=== PATIENT | female | born 1990 | race Asian ===

== ENCOUNTER 2017-02-20 01:38 | Inpatient (IN) | payer BC ==
[2017-02-20] MEDS ORDERED: Ondansetron 4 MG/2 ML SDV IVPUSH PRN ×2 (03:35→08:29)
[2017-02-20] MEDS ORDERED: Sodium Chloride 0.9% 10 ML Syringe FLUSH PRN (03:35)
[2017-02-20] MEDS ORDERED: Nalbuphine 20 MG/1 ML Amp IVPUSH PRN (03:35)
[2017-02-20] MEDS ORDERED: Oxytocin/Lactated Ringers 10 UNIT/1,000 ML BAG IV SCH (03:45)
[2017-02-20] MEDS: Lactated Ringers 1,000 ML IV SCH ×4 (04:00→09:20)
--- NOTE | 2017-02-20 06:54 | PCM.LDHP ---
L&D History of Present Illness - General Date of Service: 02/20/17 Admit Problem/Dx: Patient Status Order with Admit Dx/Problem 02/20/17 02:00 Patient Status [ADT] Routine Admission Diagnosis/Problem Admission Diagnosis/Problem Source of Information: Patient History Limitations: Reports: No Limitations - History of Present Illness Introduction:: Patient is a 26 y/o at 40 0/7 who presented early this AM for PROM. Thinks ROM was around 0130. Has had increasing painful contractions since that time. Otherwise doing well. 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: 0 LMP (Approximate): Psychiatric History: Reports: Anxiety, Depression Social & Family History - Family History Family Medical History: Noncontributory - Tobacco Use Smoking Status *Q: Never Smoker Second Hand Smoke Exposure: No - Caffeine Use Caffeine Use: Reports: Coffee - Alcohol Use Alcohol Use History: No - Recreational Drug Use Recreational Drug Use: No H&P Review of Systems - Review of Systems: Review Of Systems: See Below General: Reports: No Symptoms Pulmonary: Reports: No Symptoms Cardiovascular: Reports: No Symptoms Gastrointestinal: Reports: Abdominal Pain (contractions) Genitourinary: Reports: No Symptoms Musculoskeletal: Reports: No Symptoms Psychiatric: Reports: No Symptoms Neurological: Reports: No Symptoms L&D Exam - Exam Exam: See Below - Vital Signs Vital Signs: Last Vital Signs Temp 36.4 C 02/20/17 03:35 Pulse 72 02/20/17 03:35 Resp 18 02/20/17 03:35 BP 114/72 02/20/17 03:35 Pulse Ox Weight: 90.265 kg - OB Specific Contraction Intensity: Mild to Moderate Movement: Active Heart Tones: Present Heart Tones per Min: 135 Heart Rate (FHR) Variability: Moderate (6-25 bmp) Presentation: Vertex - Wade Score Wade Score Cervix Position: Midposition Wade Score Consistency: Medium Wade Score Effacement: >80% Wade Score Dilation: 1-2 cm Wade Score 's Station: -1 ,0 Wade Score Total: 8 - Exam General: Alert, Oriented, Cooperative Lungs: Clear to Auscultation, Normal Respiratory Effort Cardiovascular: Regular Rate, Regular Rhythm GI/Abdominal Exam: Soft, Non-Tender Genitourinary: Normal external exam Extremities: Normal Inspection Skin: Warm, Dry, Intact - Patient Data Lab Results Last 24 hrs: Laboratory Results - last 24 hr 02/20/17 02/20/17 Range/Units 04:07 04:07 WBC 10.92 H (3.98-10.04) K/mm3 RBC 4.37 (3.98-5.22) M/mm3 Hgb 12.2 (11.2-15.7) gm/L Hct 36.5 (34.1-44.9) % MCV 83.5 (79.4-94.8) fl MCH 27.9 (25.6-32.2) pg MCHC 33.4 (32.2-35.5) g/dl RDW Std Deviation 43.0 (36.4-46.3) fL Plt Count 144 L (182-369) K/mm3 MPV 11.8 (9.4-12.3) fl Blood Type O POSITIVE Gel Antibody Screen Negative Result Diagrams: 02/20/17 04:07 - Problem List (1) 40 weeks gestation of SNOMED Code(s): 88635699 ICD Code: Z3A.40 - 40 WEEKS GESTATION OF Status: Acute Current Visit: Yes (2) Premature rupture of membranes SNOMED Code(s): 65240122 ICD Code: O42.90 - BOYD ROM, 7TH0 BETW RUPT & ONST LABR, UNSP WEEKS OF GEST Status: Acute Current Visit: Yes Qualifiers: PROM onset of labor timing: unspecified duration between rupture of membranes and onset of labor PROM gestational age: full term Qualified Code( s): O42.92 - Full-term premature rupture of membranes, unspecified as to length of time between rupture and onset of labor Problem List Initiated/Reviewed/Updated: Yes Orders Last 24hrs: Active Orders 24 hr Category Date Time Status Patient Status [ADT] Routine ADT 02/20/17 02:00 Active Activity as Tolerated [RC] PFP Care 02/20/17 03:35 Active Communication Order [RC] ASDIRECTED Care 02/20/17 03:35 Active Notify Provider [RC] PFP Care 02/20/17 03:35 Active Notify Provider [RC] PRN Care 02/20/17 03:35 Active Peripheral IV Care [RC] . DIRECTED Care 02/20/17 03:35 Active Vital Signs [RC] PER UNIT ROUTINE Care 02/20/17 03:35 Active Clear Liquid Diet [DIET] Diet 02/20/17 Breakfast Active PATIENT RETYPE [BBK] Routine Lab 02/20/17 04:07 Results TYPE AND SCREEN [BBK] Routine Lab 02/20/17 04:07 Results Lactated Ringers [Ringers, Lactated] 1,000 ml Med 02/20/17 03:45 Active IV ASDIRECTED Nalbuphine [Nubain] Med 02/20/17 03:35 Active 10 mg IVPUSH Q2H PRN Ondansetron [Zofran] Med 02/20/17 03:35 Active 4 mg IVPUSH Q4H PRN Oxytocin/Lactated Ringers [Pitocin in LR 10 Units/1,000 Med 02/20/17 03:45 Active ML] 10 unit in 1,000 ml IV .CONTINUOUS Oxytocin/Lactated Ringers [Pitocin in LR 10 Units/1,000 Med 02/20/17 03:45 Active ML] 10 unit in 1,000 ml IV TITRATE Sodium Chloride 0.9% [Saline Flush] Med 02/20/17 03:35 Active 10 ml FLUSH ASDIRECTED PRN Electronic Heart Tones Ext w TOCO [WOMSER] Oth 02/20/17 03:35 Ordered Routine Electronic Heart Tones Internal [WOMSER] Per Unit Oth 02/20/17 03:35 Ordered Routine Peripheral IV Insertion Adult [OM.PC] Routine Oth 02/20/17 03:35 Ordered Resuscitation Status Routine Resus Stat 02/20/17 03:35 Ordered Medication Orders Lactated Ringer's (Ringers, Lactated) 1,000 mls @ 100 mls/hr IV ASDIRECTED ANTOINE Last Admin: 02/20/17 05:58 Dose: 100 mls/hr Infusion: 02/20/17 05:58 Dose: 100 mls/hr Admin: 02/20/17 04:00 Dose: 100 mls/hr Oxytocin/Lactated Ringer's (Pitocin In Lr 10 Units/1,000 Ml) 10 unit in 1,000 mls @ 12 mls/hr IV TITRATE ANTOINE; 2 MUNITS/MIN PRN Reason: Protocol Oxytocin/Lactated Ringer's (Pitocin In Lr 10 Units/1,000 Ml) 10 unit in 1,000 mls @ 500 mls/hr IV .CONTINUOUS ANTOINE Nalbuphine HCl (Nubain) 10 mg IVPUSH Q2H PRN PRN Reason: Pain (moderate 4-6) Ondansetron HCl (Zofran) 4 mg IVPUSH Q4H PRN PRN Reason: Nausea/Vomiting Sodium Chloride (Saline Flush) 10 ml FLUSH ASDIRECTED PRN PRN Reason: Keep Vein Open Assessment/Plan Comment:: 26 y/o at 40 0/7 wks with PROM * On initial exam cervix was 2 cm, now about 3 cm. Will start pitocin for augmentation. * GBS negative, no need for antibiotics * Pain management per patient preference * Anticipate
[2017-02-20] MEDS: Oxytocin/Lactated Ringers 10 UNIT/1,000 ML BAG IV SCH ×2 (07:45→23:36)
[2017-02-20] MEDS ORDERED: fentaNYL 100 MCG/2 ML SDV EPIDUR PRN (08:29)
[2017-02-20] MEDS ORDERED: diphenhydrAMINE 50 MG/ML SDV IVPUSH PRN (08:29)
[2017-02-20] MEDS ORDERED: ePHEDrine 50 MG/ML SDV IVPUSH PRN (08:29)
--- NOTE | 2017-02-20 08:32 | PCM.PREANE ---
Preanesthetic Assessment - Procedure Proposed Procedure: Labor Epidural - Anesthesia/Transfusion/Family Hx Anesthesia History: No Prior Anesthesia Family History of Anesthesia Reaction: No Transfusion History: No Prior Transfusion(s) - Review of Systems General: No Symptoms Pulmonary: No Symptoms Cardiovascular: No Symptoms Gastrointestinal: Other (GERD) Neurological: No Symptoms Other: Reports: Depression, Anxiety - Physical Assessment NPO Status Date: 02/20/17 NPO Status Time: 07:00 Respiratory Rate: 18 Vital Signs: Last Vital Signs Temp 36.4 C 02/20/17 03:35 Pulse 72 02/20/17 03:35 Resp 18 02/20/17 03:35 BP 114/72 02/20/17 03:35 Pulse Ox Height: 1.63 m Weight: 90.265 kg ASA Class: 2 Mental Status: Alert & Oriented x3 Airway Class: Mallampati = 1 Dentition: Reports: Normal Dentition Thyro-Mental Finger Breadths: 3 Mouth Opening Finger Breadths: 3 ROM/Head Extension: Full Lungs: Clear to Auscultation, Normal Respiratory Effort Cardiovascular: Regular Rate, Regular Rhythm - Lab Values: Laboratory Last Values WBC 10.92 K/mm3 (3.98-10.04) H 02/20/17 04:07 RBC 4.37 M/mm3 (3.98-5.22) 02/20/17 04:07 Hgb 12.2 gm/L (11.2-15.7) 02/20/17 04:07 Hct 36.5 % (34.1-44.9) 02/20/17 04:07 MCV 83.5 fl (79.4-94.8) 02/20/17 04:07 MCH 27.9 pg (25.6-32.2) 02/20/17 04:07 MCHC 33.4 g/dl (32.2-35.5) 02/20/17 04:07 RDW Std Deviation 43.0 fL (36.4-46.3) 02/20/17 04:07 Plt Count 144 K/mm3 (182-369) L 02/20/17 04:07 MPV 11.8 fl (9.4-12.3) 02/20/17 04:07 Blood Type O POSITIVE 02/20/17 04:07 Gel Antibody Screen Negative 02/20/17 04:07 - Allergies Allergies/Adverse Reactions: Allergies Allergy/AdvReac Type Severity Reaction Status Date / Time No Known Allergies Allergy Verified 02/20/17 03:35 - Blood Blood Available: No Product(s) Available: None - Anesthesia Plan Pre-Op Medication Ordered: None - Acknowledgements Anesthesia Type Planned: Epidural Pt an Appropriate Candidate for the Planned Anesthesia: Yes Alternatives and Risks of Anesthesia Discussed w Pt/Guardian: Yes Pt/Guardian Understands and Agrees with Anesthesia Plan: Yes PreAnesthesia Questionnaire - Past Health History Medical/Surgical History: Denies 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: Psychiatric History: Reports: Anxiety, Depression - SUBSTANCE USE Smoking Status *Q: Never Smoker Second Hand Smoke Exposure: No Recreational Drug Use History: No - CURRENT (IN HOUSE) MEDS Current Meds: Current Medications Lactated Ringer's (Ringers, Lactated) 1,000 mls @ 100 mls/hr IV ASDIRECTED ANTOINE Last Admin: 02/20/17 08:22 Dose: 999 mls/hr Oxytocin/Lactated Ringer's (Pitocin In Lr 10 Units/1,000 Ml) 10 unit in 1,000 mls @ 12 mls/hr IV TITRATE ANTOINE; 2 MUNITS/MIN PRN Reason: Protocol Last Titration: 02/20/17 08:15 Dose: 4 munits/min, 24 mls/hr Oxytocin/Lactated Ringer's (Pitocin In Lr 10 Units/1,000 Ml) 10 unit in 1,000 mls @ 500 mls/hr IV .CONTINUOUS ANTOINE Nalbuphine HCl (Nubain) 10 mg IVPUSH Q2H PRN PRN Reason: Pain (moderate 4-6) Ondansetron HCl (Zofran) 4 mg IVPUSH Q4H PRN PRN Reason: Nausea/Vomiting Sodium Chloride (Saline Flush) 10 ml FLUSH ASDIRECTED PRN PRN Reason: Keep Vein Open
[2017-02-20] MEDS: Bupivacaine/fentaNYL/NS 100 ML Bag EPIDUR SCH ×3 (09:04→23:14)
--- NOTE | 2017-02-20 12:11 | PCM.PNLD ---
Labor Progress Note - VS & Meds Vital Signs: Last Vital Signs Temp 36.4 C 02/20/17 03:35 Pulse 72 02/20/17 03:35 Resp 18 02/20/17 08:32 BP 114/72 02/20/17 03:35 Pulse Ox Active Medications: Current Medications Diphenhydramine HCl (Benadryl) 25 mg IVPUSH Q6H PRN PRN Reason: Pruritis Ephedrine Sulfate (Ephedrine Sulfate) 5 mg IVPUSH ASDIRECTED PRN PRN Reason: Hypotension Fentanyl (Sublimaze) 100 mcg EPIDUR Q3H PRN PRN Reason: Pain Last Admin: 02/20/17 09:03 Dose: 100 mcg Fentanyl/Bupivacaine HCl (Fentanyl/Bupivacaine/Ns 2 Mcg-0.125% 100 Ml) 100 ml EPIDUR ASDIRECTED ANTOINE Last Admin: 02/20/17 09:04 Dose: 100 ml Lactated Ringer's (Ringers, Lactated) 1,000 mls @ 100 mls/hr IV ASDIRECTED ANTOINE Last Admin: 02/20/17 09:20 Dose: 100 mls/hr Oxytocin/Lactated Ringer's (Pitocin In Lr 10 Units/1,000 Ml) 10 unit in 1,000 mls @ 12 mls/hr IV TITRATE ANTOINE; 2 MUNITS/MIN PRN Reason: Protocol Last Titration: 02/20/17 11:20 Dose: 10 munits/min, 60 mls/hr Oxytocin/Lactated Ringer's (Pitocin In Lr 10 Units/1,000 Ml) 10 unit in 1,000 mls @ 500 mls/hr IV .CONTINUOUS ANTOINE Nalbuphine HCl (Nubain) 10 mg IVPUSH Q2H PRN PRN Reason: Pain (moderate 4-6) Ondansetron HCl (Zofran) 4 mg IVPUSH Q4H PRN PRN Reason: Nausea/Vomiting Ondansetron HCl (Zofran) 4 mg IVPUSH ONETIME PRN PRN Reason: Nausea/Vomiting Sodium Chloride (Saline Flush) 10 ml FLUSH ASDIRECTED PRN PRN Reason: Keep Vein Open - Uterine Contractions Uterine Monitoring Mode: External [place] Contraction Intensity: Moderate Uterine Resting Tone: Soft - Monitoring Monitor Mode: External Ultrasound Heart Rate (FHR) Baseline: 135 Heart Rate (FHR) Variability: Moderate (6-25 bmp) Accelerations: Present, 10x10 (=/<32 wks) Decelerations: Early (isolated) Strip Review: Category I - Vaginal Exam Dilation (cm): 4 Effacement (Percent): 80 Station: -1 Cervical Position: Midposition - Labor Progress (Free Text) Labor Progress: Patient doing well. Comfortable with epidural. SVE with slow, but consistent change. Now 4 cm. Pitocin just increased to 12. Continue per protocol.
--- NOTE | 2017-02-20 17:21 | PCM.PNLD ---
Labor Progress Note - VS & Meds Vital Signs: Last Vital Signs Temp 36.4 C 02/20/17 03:35 Pulse 72 02/20/17 03:35 Resp 18 02/20/17 08:32 BP 114/72 02/20/17 03:35 Pulse Ox Active Medications: Current Medications Diphenhydramine HCl (Benadryl) 25 mg IVPUSH Q6H PRN PRN Reason: Pruritis Ephedrine Sulfate (Ephedrine Sulfate) 5 mg IVPUSH ASDIRECTED PRN PRN Reason: Hypotension Fentanyl (Sublimaze) 100 mcg EPIDUR Q3H PRN PRN Reason: Pain Last Admin: 02/20/17 09:03 Dose: 100 mcg Fentanyl/Bupivacaine HCl (Fentanyl/Bupivacaine/Ns 2 Mcg-0.125% 100 Ml) 100 ml EPIDUR ASDIRECTED ANTOINE Last Admin: 02/20/17 16:04 Dose: 100 ml Lactated Ringer's (Ringers, Lactated) 1,000 mls @ 100 mls/hr IV ASDIRECTED ANTOINE Last Admin: 02/20/17 09:20 Dose: 100 mls/hr Oxytocin/Lactated Ringer's (Pitocin In Lr 10 Units/1,000 Ml) 10 unit in 1,000 mls @ 12 mls/hr IV TITRATE ANTOINE; 2 MUNITS/MIN PRN Reason: Protocol Last Titration: 02/20/17 15:00 Dose: 12 munits/min, 72 mls/hr Oxytocin/Lactated Ringer's (Pitocin In Lr 10 Units/1,000 Ml) 10 unit in 1,000 mls @ 500 mls/hr IV .CONTINUOUS ANTOINE Nalbuphine HCl (Nubain) 10 mg IVPUSH Q2H PRN PRN Reason: Pain (moderate 4-6) Ondansetron HCl (Zofran) 4 mg IVPUSH Q4H PRN PRN Reason: Nausea/Vomiting Ondansetron HCl (Zofran) 4 mg IVPUSH ONETIME PRN PRN Reason: Nausea/Vomiting Sodium Chloride (Saline Flush) 10 ml FLUSH ASDIRECTED PRN PRN Reason: Keep Vein Open - Uterine Contractions Uterine Monitoring Mode: External [place] Contraction Intensity: Moderate to Strong Uterine Resting Tone: Soft - Monitoring Monitor Mode: External Ultrasound Heart Rate (FHR) Baseline: 140 Heart Rate (FHR) Variability: Moderate (6-25 bmp) Accelerations: Present, 10x10 (=/<32 wks) Decelerations: Early (rare), Variable (rare) Strip Review: Category I - Vaginal Exam Dilation (cm): 7-8 Effacement (Percent): 80 Station: 0 Cervical Position: Anterior - Labor Progress (Free Text) Labor Progress: Doing well. Pitocin still at 12. Continue present management
[2017-02-20] MEDS ORDERED: Famotidine 20 MG/2 ML SDV IVPUSH PRN (18:48)
--- NOTE | 2017-02-20 20:07 | PCM.PNLD ---
Labor Progress Note - VS & Meds Vital Signs: Last Vital Signs Temp 36.4 C 02/20/17 03:35 Pulse 72 02/20/17 03:35 Resp 18 02/20/17 08:32 BP 114/72 02/20/17 03:35 Pulse Ox Active Medications: Current Medications Diphenhydramine HCl (Benadryl) 25 mg IVPUSH Q6H PRN PRN Reason: Pruritis Ephedrine Sulfate (Ephedrine Sulfate) 5 mg IVPUSH ASDIRECTED PRN PRN Reason: Hypotension Famotidine (Pepcid) 20 mg IVPUSH ONETIME PRN PRN Reason: stomach ache Fentanyl (Sublimaze) 100 mcg EPIDUR Q3H PRN PRN Reason: Pain Last Admin: 02/20/17 09:03 Dose: 100 mcg Fentanyl/Bupivacaine HCl (Fentanyl/Bupivacaine/Ns 2 Mcg-0.125% 100 Ml) 100 ml EPIDUR ASDIRECTED ANTOINE Last Admin: 02/20/17 16:04 Dose: 100 ml Lactated Ringer's (Ringers, Lactated) 1,000 mls @ 100 mls/hr IV ASDIRECTED ANTOINE Last Admin: 02/20/17 09:20 Dose: 100 mls/hr Oxytocin/Lactated Ringer's (Pitocin In Lr 10 Units/1,000 Ml) 10 unit in 1,000 mls @ 12 mls/hr IV TITRATE ANTOINE; 2 MUNITS/MIN PRN Reason: Protocol Last Titration: 02/20/17 15:00 Dose: 12 munits/min, 72 mls/hr Oxytocin/Lactated Ringer's (Pitocin In Lr 10 Units/1,000 Ml) 10 unit in 1,000 mls @ 500 mls/hr IV .CONTINUOUS ANTOINE Nalbuphine HCl (Nubain) 10 mg IVPUSH Q2H PRN PRN Reason: Pain (moderate 4-6) Ondansetron HCl (Zofran) 4 mg IVPUSH Q4H PRN PRN Reason: Nausea/Vomiting Last Admin: 02/20/17 18:52 Dose: 4 mg Ondansetron HCl (Zofran) 4 mg IVPUSH ONETIME PRN PRN Reason: Nausea/Vomiting Sodium Chloride (Saline Flush) 10 ml FLUSH ASDIRECTED PRN PRN Reason: Keep Vein Open - Uterine Contractions Uterine Monitoring Mode: External [place] Contraction Intensity: Moderate to Strong Uterine Resting Tone: Soft - Monitoring Monitor Mode: External Ultrasound Heart Rate (FHR) Baseline: 130 Heart Rate (FHR) Variability: Moderate (6-25 bmp) Accelerations: Present, 10x10 (=/<32 wks) Decelerations: Variable (rare) Strip Review: Category II - Vaginal Exam Dilation (cm): 9 Effacement (Percent): 80 Station: 1 Cervical Position: Anterior Vaginal Exam Comment: Patient with most of cervix remaining on left side. This is similar to last exam when more cervix noted on left than right - Labor Progress (Free Text) Labor Progress: Doing well. Now down to 11 of pitocin given contractions were q1-2. Placed in roll to hopefully help with last bit of dilation. Will re-check in 1 hr.
--- NOTE | 2017-02-20 21:56 | PCM.SN ---
- Free Text/Narrative Note: Patient pushing for about 20 minutes. Now with fever of 101.0. Will start ampicillin and gentamicin for concerns of chorioamnioitis Libia Mcnamara MD
[2017-02-20] MEDS ORDERED: Ampicillin 2 GM in Sodium Chloride 0.9% 100 ML IV SCH (22:00)
[2017-02-21] MEDS ORDERED: Misoprostol 200 MCG Tab ONE (00:48)
--- NOTE | 2017-02-21 01:14 | PCM.DEL ---
L & D Note - General Info Date of Service: 02/21/17 - Delivery Note Labor: Augmented by Oxytocin Delivery Outcome: Livebirth Delivery Method: Spontaneous Vaginal Delivery-Single Infant Delivery Mode: Spontaneous Presentation: Left Occiput Anterior (EDGARDO) Nuchal Cord: Present (not reduced) Anesthesia Type: Epidural Amniotic Fluid Description: Meconium Stained Episiotomy Type: None Laceration: 2nd Degree, Perineal Suture type: Vicryl Suture size: 2-0 Placenta: Intact, Spontaneous Cord: 3 Vessels Estimated Blood Loss: 350 Resuscitation Needed: Yes [place]: Suctioned, Bulb Syringe, Stimulated, Warmed, [place] Used, Warmer Used Provider: Beatriz Corrales Score 1 min: 3 Score 5 min: 8 Delivery Comments (Free Text/Narrative):: Patient found to be complete and began pushing. First 2 hours of pushing very minimal descent of head, but after this point in time patient began making good progress. After approximately 3-1/4 hours patient did deliver. head delivered from an EDGARDO presentation. Nuchal cord present, but not reduced. With gentle downward traction the shoulders and body quickly delivered. Cord clamped and cut. Baby handed to awaiting ventilated rib fitter. Cord blood obtained. Placenta allowed time to separate and expelled. Uterine tone poor at this time and so patient given 600 mcg of buccal Cytotec. Inspection of the perineum showed a second-degree laceration. This was repaired with a 2- 0 Vicryl in the typical fashion. - Patient Data Vitals - Most Recent: Last Vital Signs Temp 36.4 C 02/20/17 03:35 Pulse 72 02/20/17 03:35 Resp 18 02/20/17 08:32 BP 114/72 02/20/17 03:35 Pulse Ox Weight - Most Recent: 90.265 kg I&O - Last 24 Hours: Intake & Output 02/20/17 02/20/17 02/21/17 14:59 22:59 06:59 Intake Total 240 Balance 240 Lab Results Last 24 Hours: Laboratory Results - last 24 hr 02/20/17 02/20/17 Range/Units 04:07 04:07 WBC 10.92 H (3.98-10.04) K/mm3 RBC 4.37 (3.98-5.22) M/mm3 Hgb 12.2 (11.2-15.7) gm/L Hct 36.5 (34.1-44.9) % MCV 83.5 (79.4-94.8) fl MCH 27.9 (25.6-32.2) pg MCHC 33.4 (32.2-35.5) g/dl RDW Std Deviation 43.0 (36.4-46.3) fL Plt Count 144 L (182-369) K/mm3 MPV 11.8 (9.4-12.3) fl Blood Type O POSITIVE Gel Antibody Screen Negative Med Orders - Current: Current Medications Diphenhydramine HCl (Benadryl) 25 mg IVPUSH Q6H PRN PRN Reason: Pruritis Ephedrine Sulfate (Ephedrine Sulfate) 5 mg IVPUSH ASDIRECTED PRN PRN Reason: Hypotension Famotidine (Pepcid) 20 mg IVPUSH ONETIME PRN PRN Reason: stomach ache Fentanyl (Sublimaze) 100 mcg EPIDUR Q3H PRN PRN Reason: Pain Last Admin: 02/20/17 09:03 Dose: 100 mcg Fentanyl/Bupivacaine HCl (Fentanyl/Bupivacaine/Ns 2 Mcg-0.125% 100 Ml) 100 ml EPIDUR ASDIRECTED ANTOINE Last Admin: 02/20/17 23:14 Dose: 100 ml Lactated Ringer's (Ringers, Lactated) 1,000 mls @ 100 mls/hr IV ASDIRECTED ANTOINE Last Admin: 02/20/17 09:20 Dose: 100 mls/hr Oxytocin/Lactated Ringer's (Pitocin In Lr 10 Units/1,000 Ml) 10 unit in 1,000 mls @ 12 mls/hr IV TITRATE ANTOINE; 2 MUNITS/MIN PRN Reason: Protocol Last Admin: 02/20/17 23:36 Dose: 12 munits/min, 72 mls/hr Oxytocin/Lactated Ringer's (Pitocin In Lr 10 Units/1,000 Ml) 10 unit in 1,000 mls @ 500 mls/hr IV .CONTINUOUS ANTOINE Ampicillin Sodium 2 gm/ Sodium (Chloride) 100 mls @ 200 mls/hr IV Q6H ANTOINE Last Admin: 02/20/17 22:02 Dose: 200 mls/hr Gentamicin Sulfate 140 mg/ (Sodium Chloride) 103.5 mls @ 200 mls/hr IV Q8H ANTOINE Last Admin: 02/20/17 22:32 Dose: 200 mls/hr Nalbuphine HCl (Nubain) 10 mg IVPUSH Q2H PRN PRN Reason: Pain (moderate 4-6) Ondansetron HCl (Zofran) 4 mg IVPUSH Q4H PRN PRN Reason: Nausea/Vomiting Last Admin: 02/20/17 18:52 Dose: 4 mg Ondansetron HCl (Zofran) 4 mg IVPUSH ONETIME PRN PRN Reason: Nausea/Vomiting Sodium Chloride (Saline Flush) 10 ml FLUSH ASDIRECTED PRN PRN Reason: Keep Vein Open Discontinued Medications Misoprostol (Cytotec) Confirm Administered Dose 600 mcg .ROUTE .STK-MED ONE Stop: 02/21/17 00:49 - Problem List & Annotations (1) 40 weeks gestation of SNOMED Code(s): 08868263 Code(s): Z3A.40 - 40 WEEKS GESTATION OF Status: Acute Current Visit: Yes (2) Premature rupture of membranes SNOMED Code(s): 15791303 Code(s): O42.90 - BOYD ROM, 7TH0 BETW RUPT & ONST LABR, UNSP WEEKS OF GEST Status: Acute Current Visit: Yes Qualifiers: PROM onset of labor timing: unspecified duration between rupture of membranes and onset of labor PROM gestational age: full term Qualified Code( s): O42.92 - Full-term premature rupture of membranes, unspecified as to length of time between rupture and onset of labor (3) Chorioamnionitis SNOMED Code(s): 95053419 Code(s): O41.1290 - CHORIOAMNIONITIS, UNSP TRIMESTER, NOT APPLICABLE OR UNSP Status: Acute Current Visit: Yes (4) Vaginal delivery SNOMED Code(s): 009777078 Code(s): O80 - ENCOUNTER FOR FULL-TERM UNCOMPLICATED DELIVERY Status: Acute Current Visit: Yes - Problem List Review Problem List Initiated/Reviewed/Updated: Yes - My Orders Last 24 Hours: My Active Orders 02/20/17 02:00 Patient Status [ADT] Routine 02/20/17 03:35 Communication Order [RC] ASDIRECTED Notify Provider [RC] PFP Peripheral IV Care [RC] . DIRECTED Vital Signs [RC] PER UNIT ROUTINE Nalbuphine [Nubain] 10 mg IVPUSH Q2H PRN Ondansetron [Zofran] 4 mg IVPUSH Q4H PRN Sodium Chloride 0.9% [Saline Flush] 10 ml FLUSH ASDIRECTED PRN Electronic Heart Tones Ext w TOCO [WOMSER] Routine Electronic Heart Tones Internal [WOMSER] Per Unit Routine Peripheral IV Insertion Adult [OM.PC] Routine Resuscitation Status Routine 02/20/17 03:45 Lactated Ringers [Ringers, Lactated] 1,000 ml IV ASDIRECTED Oxytocin/Lactated Ringers [Pitocin in LR 10 Units/1,000 ML] 10 unit in 1,000 ml IV .CONTINUOUS Oxytocin/Lactated Ringers [Pitocin in LR 10 Units/1,000 ML] 10 unit in 1,000 ml IV TITRATE 02/20/17 18:48 Famotidine [Pepcid] 20 mg IVPUSH ONETIME PRN 02/20/17 22:00 Ampicillin 2 gm Sodium Chloride 0.9% [Normal Saline] 100 ml IV Q6H Gentamicin 140 mg Sodium Chloride 0.9% [Normal Saline] 100 ml IV Q8H 02/20/17 Dinner Regular Diet [DIET] - Assessment Assessment:: 26 y/o G1 now P1001 PPD#0 from at 40 1/7 wks - Plan Plan:: * No further antibiotics required. Will monitor closely for additional fevers * Routine cares * Encourage breast feeding * Discharge home in 2 days Libia Mcnamraa MD
[2017-02-21] MEDS ORDERED: Acetaminophen 325 MG Tab PO PRN (01:31)
[2017-02-21] MEDS ORDERED: Docusate Sodium 100 MG Cap PO PRN (01:31)
[2017-02-21] MEDS ORDERED: Witch Hazel Medicated Pads 100/Jar TOP PRN (01:31)
[2017-02-21] MEDS ORDERED: Benzocaine/Menthol 20%-0.5% Spray 56 GM Canister TOP PRN (01:31)
[2017-02-21] MEDS: Lanolin 100% Cream 7 GM Tube TOP PRN (07:01)
[2017-02-21] MEDS: Ibuprofen 600 MG Tab PO PRN (07:01)
--- NOTE | 2017-02-21 07:33 | PCM48HPAN ---
Post Anesthesia Note - EVALUATION WITHIN 48HRS OF ANESTHETIC Vital Signs in Normal Range: Yes Patient Participated in Evaluation: Yes Respiratory Function Stable: Yes Airway Patent: Yes Cardiovascular Function Stable: Yes Hydration Status Stable: Yes Pain Control Satisfactory: Yes Nausea and Vomiting Control Satisfactory: Yes Mental Status Recovered: Yes - COMMENTS/OBSERVATIONS Free Text/Narrative:: Patient up walking around room. Denies any back pain, numbness or tingling in lower extremities, and headache at this time. No apparent complications noted. Patient has no further questions. Satisfied with pain relief.
[2017-02-22] MEDS: Ibuprofen 600 MG Tab PO PRN ×2 (02:20→21:24)
--- NOTE | 2017-02-22 06:52 | PCM.PNPP ---
- General Info Date of Service: 02/22/17 Functional Status: Reports: Pain Controlled, Tolerating Diet, Ambulating - Review of Systems General: Reports: No Symptoms Pulmonary: Reports: No Symptoms Cardiovascular: Reports: No Symptoms Gastrointestinal: Reports: No Symptoms Genitourinary: Reports: Other (Some discomfort with urination - improving) - Patient Data Vital Signs - Most Recent: Last Vital Signs Temp 36.9 C 02/22/17 05:25 Pulse 58 L 02/22/17 05:25 Resp 14 02/22/17 05:25 BP 100/64 02/22/17 05:25 Pulse Ox 96 02/22/17 05:25 Weight - Most Recent: 90.265 kg I&O - Last 24 Hours: Intake & Output 02/21/17 02/21/17 02/22/17 14:59 22:59 06:59 Intake Total 120 Balance 120 Med Orders - Current: Current Medications Acetaminophen (Tylenol) 650 mg PO Q4H PRN PRN Reason: mild pain or fever Last Admin: 02/21/17 19:09 Dose: 650 mg Benzocaine/Menthol (Dermoplast Pain Relief [place]) 0 gm TOP ASDIRECTED PRN PRN Reason: Perineal Comfort Measure Last Admin: 02/21/17 07:01 Dose: 1 can Docusate Sodium (Colace) 100 mg PO BID PRN PRN Reason: Constipation Emollient Ointment (Lansinoh Hpa) 0 gm TOP ASDIRECTED PRN PRN Reason: Sore Nipples Last Admin: 02/21/17 07:01 Dose: 1 tube Ibuprofen (Motrin) 600 mg PO Q6H PRN PRN Reason: Mild pain or fever Last Admin: 02/22/17 02:20 Dose: 600 mg Witch Hawa (Tucks) 1 pad TOP ASDIRECTED PRN PRN Reason: Hemorrhoid pain Last Admin: 02/21/17 07:02 Dose: 1 can Discontinued Medications Diphenhydramine HCl (Benadryl) 25 mg IVPUSH Q6H PRN PRN Reason: Pruritis Ephedrine Sulfate (Ephedrine Sulfate) 5 mg IVPUSH ASDIRECTED PRN PRN Reason: Hypotension Famotidine (Pepcid) 20 mg IVPUSH ONETIME PRN PRN Reason: stomach ache Fentanyl (Sublimaze) 100 mcg EPIDUR Q3H PRN PRN Reason: Pain Last Admin: 02/20/17 09:03 Dose: 100 mcg Fentanyl/Bupivacaine HCl (Fentanyl/Bupivacaine/Ns 2 Mcg-0.125% 100 Ml) 100 ml EPIDUR ASDIRECTED ANTOINE Last Admin: 02/20/17 23:14 Dose: 100 ml Lactated Ringer's (Ringers, Lactated) 1,000 mls @ 100 mls/hr IV ASDIRECTED ANTOINE Last Admin: 02/20/17 09:20 Dose: 100 mls/hr Oxytocin/Lactated Ringer's (Pitocin In Lr 10 Units/1,000 Ml) 10 unit in 1,000 mls @ 12 mls/hr IV TITRATE ANTOINE; 2 MUNITS/MIN PRN Reason: Protocol Last Admin: 02/20/17 23:36 Dose: 12 munits/min, 72 mls/hr Oxytocin/Lactated Ringer's (Pitocin In Lr 10 Units/1,000 Ml) 10 unit in 1,000 mls @ 500 mls/hr IV .CONTINUOUS ANTOINE Ampicillin Sodium 2 gm/ Sodium (Chloride) 100 mls @ 200 mls/hr IV Q6H [facility] Last Admin: 02/20/17 22:02 Dose: 200 mls/hr Gentamicin Sulfate 140 mg/ (Sodium Chloride) 103.5 mls @ 200 mls/hr IV Q8H [facility] Last Admin: 02/20/17 22:32 Dose: 200 mls/hr Misoprostol (Cytotec) Confirm Administered Dose 600 mcg .ROUTE .STK-MED ONE Stop: 02/21/17 00:49 Last Admin: 02/21/17 08:44 Dose: Not Given Nalbuphine HCl (Nubain) 10 mg IVPUSH Q2H PRN PRN Reason: Pain (moderate 4-6) Ondansetron HCl (Zofran) 4 mg IVPUSH Q4H PRN PRN Reason: Nausea/Vomiting Last Admin: 02/20/17 18:52 Dose: 4 mg Ondansetron HCl (Zofran) 4 mg IVPUSH ONETIME PRN PRN Reason: Nausea/Vomiting Sodium Chloride (Saline Flush) 10 ml FLUSH ASDIRECTED PRN PRN Reason: Keep Vein Open - Interaction Infant Disposition, : [place] in Room with Family Interaction: Holding Feeding: Attempted ; Nursed Fair/Poor - Recovery Exam Fundal Tone: Firm Fundal Level: At Umbilicus Fundal Placement: Midline Lochia Amount: Small Lochia Color: Rubra/Red Perineum Description: Intact, Minimal Bruising/Swelling Episiotomy/Laceration: Approximated Bladder Status: Voiding Urinary Elimination: Voided Other Urinary Elimination, : pt states no urge to void at the moment - Exam General: Alert, Oriented, Cooperative GI/Abdominal Exam: Soft, Non-Tender Extremities: Normal Inspection Skin: Warm, Dry, Intact - Problem List & Annotations (1) 40 weeks gestation of SNOMED Code(s): 33251066 Code(s): Z3A.40 - 40 WEEKS GESTATION OF Status: Acute Current Visit: Yes (2) Premature rupture of membranes SNOMED Code(s): 82562280 Code(s): O42.90 - BOYD ROM, 7TH0 BETW RUPT & ONST LABR, UNSP WEEKS OF GEST Status: Acute Current Visit: Yes Qualifiers: PROM onset of labor timing: unspecified duration between rupture of membranes and onset of labor PROM gestational age: full term Qualified Code( s): O42.92 - Full-term premature rupture of membranes, unspecified as to length of time between rupture and onset of labor (3) Chorioamnionitis SNOMED Code(s): 04160173 Code(s): O41.1290 - CHORIOAMNIONITIS, UNSP TRIMESTER, NOT APPLICABLE OR UNSP Status: Acute Current Visit: Yes Qualifiers: Trimester: third trimester (4) Vaginal delivery SNOMED Code(s): 223170341 Code(s): O80 - ENCOUNTER FOR FULL-TERM UNCOMPLICATED DELIVERY Status: Acute Current Visit: Yes - Problem List Review Problem List Initiated/Reviewed/Updated: Yes - My Orders Last 24 Hours: My Active Orders 02/21/17 21:30 Communication Order [RC] ASDIRECTED 02/21/17 Breakfast Regular Diet [DIET] 02/22/17 01:31 Heat Therapy [OM.PC] PRN - Assessment Assessment:: 26 y/o G1 now P1001 PPD#1 from at 40 1/7 wks - Plan Plan:: * Routine cares * Encourage breast feeding * Discharge home tomorrow Libia Mcnamara MD
[2017-02-22] MEDS: Lanolin 100% Cream 7 GM Tube TOP PRN (15:48)
[2017-02-22] MEDS ORDERED: Hydrocortisone 1% Crm 30 GM Tube TOP PRN (16:48)
[2017-02-23 07:00] VITALS: BP 126/63
--- NOTE | 2017-02-23 07:30 | PCM.PNPP ---
- General Info Date of Service: 02/23/17 Functional Status: Reports: Pain Controlled, Tolerating Diet, Ambulating, Urinating - Review of Systems General: Reports: No Symptoms Pulmonary: Reports: No Symptoms Cardiovascular: Reports: No Symptoms Gastrointestinal: Reports: No Symptoms Genitourinary: Reports: No Symptoms Musculoskeletal: Reports: No Symptoms - Patient Data Vital Signs - Most Recent: Last Vital Signs Temp 36.2 C 02/23/17 05:16 Pulse 56 L 02/23/17 05:16 Resp 16 02/23/17 05:16 BP 126/63 02/23/17 05:16 Pulse Ox 93 L 02/23/17 05:16 Weight - Most Recent: 90.265 kg I&O - Last 24 Hours: Intake & Output 02/22/17 02/23/17 02/23/17 22:59 06:59 14:59 Intake Total 120 Balance 120 Med Orders - Current: Current Medications Acetaminophen (Tylenol) 650 mg PO Q4H PRN PRN Reason: mild pain or fever Last Admin: 02/21/17 19:09 Dose: 650 mg Benzocaine/Menthol (Dermoplast Pain Relief [place]) 0 gm TOP ASDIRECTED PRN PRN Reason: Perineal Comfort Measure Last Admin: 02/21/17 07:01 Dose: 1 can Docusate Sodium (Colace) 100 mg PO BID PRN PRN Reason: Constipation Last Admin: 02/22/17 15:48 Dose: 100 mg Emollient Ointment (Lansinoh Hpa) 0 gm TOP ASDIRECTED PRN PRN Reason: Sore Nipples Last Admin: 02/22/17 15:48 Dose: 1 tube Hydrocortisone (Hydrocortisone 1% Crm) 0 gm TOP ASDIRECTED PRN PRN Reason: Pain Last Admin: 02/22/17 18:17 Dose: 1 tube Ibuprofen (Motrin) 600 mg PO Q6H PRN PRN Reason: Mild pain or fever Last Admin: 02/22/17 21:24 Dose: 600 mg Witch [place]a (Tucks) 1 pad TOP ASDIRECTED PRN PRN Reason: Hemorrhoid pain Last Admin: 02/21/17 07:02 Dose: 1 can Discontinued Medications Diphenhydramine HCl (Benadryl) 25 mg IVPUSH Q6H PRN PRN Reason: Pruritis Ephedrine Sulfate (Ephedrine Sulfate) 5 mg IVPUSH ASDIRECTED PRN PRN Reason: Hypotension Famotidine (Pepcid) 20 mg IVPUSH ONETIME PRN PRN Reason: stomach ache Fentanyl (Sublimaze) 100 mcg EPIDUR Q3H PRN PRN Reason: Pain Last Admin: 02/20/17 09:03 Dose: 100 mcg Fentanyl/Bupivacaine HCl (Fentanyl/Bupivacaine/Ns 2 Mcg-0.125% 100 Ml) 100 ml EPIDUR ASDIRECTED ANTOINE Last Admin: 02/20/17 23:14 Dose: 100 ml Lactated Ringer's (Ringers, Lactated) 1,000 mls @ 100 mls/hr IV ASDIRECTED ANTOINE Last Admin: 02/20/17 09:20 Dose: 100 mls/hr Oxytocin/Lactated Ringer's (Pitocin In Lr 10 Units/1,000 Ml) 10 unit in 1,000 mls @ 12 mls/hr IV TITRATE ANTOINE; 2 MUNITS/MIN PRN Reason: Protocol Last Admin: 02/20/17 23:36 Dose: 12 munits/min, 72 mls/hr Oxytocin/Lactated Ringer's (Pitocin In Lr 10 Units/1,000 Ml) 10 unit in 1,000 mls @ 500 mls/hr IV .CONTINUOUS ANTOINE Ampicillin Sodium 2 gm/ Sodium (Chloride) 100 mls @ 200 mls/hr IV Q6H [facility] Last Admin: 02/20/17 22:02 Dose: 200 mls/hr Gentamicin Sulfate 140 mg/ (Sodium Chloride) 103.5 mls @ 200 mls/hr IV Q8H [facility] Last Admin: 02/20/17 22:32 Dose: 200 mls/hr Misoprostol (Cytotec) Confirm Administered Dose 600 mcg .ROUTE .K-MED ONE Stop: 02/21/17 00:49 Last Admin: 02/21/17 08:44 Dose: Not Given Nalbuphine HCl (Nubain) 10 mg IVPUSH Q2H PRN PRN Reason: Pain (moderate 4-6) Ondansetron HCl (Zofran) 4 mg IVPUSH Q4H PRN PRN Reason: Nausea/Vomiting Last Admin: 02/20/17 18:52 Dose: 4 mg Ondansetron HCl (Zofran) 4 mg IVPUSH ONETIME PRN PRN Reason: Nausea/Vomiting Sodium Chloride (Saline Flush) 10 ml FLUSH ASDIRECTED PRN PRN Reason: Keep Vein Open - Interaction Infant Disposition, : in Room with Family Interaction: Holding Infant Feeding: Attempted ; Nursed Fair/Poor - Recovery Exam Fundal Tone: Firm Fundal Level: 1 Fingerbreadths Below Umbilicus Fundal Placement: Midline Lochia Amount: Small Lochia Color: Rubra/Red Perineum Description: Intact, Minimal Bruising/Swelling Other Perinuem Description: 2nd degree with repair Episiotomy/Laceration: Approximated Bladder Status: Voiding Urinary Elimination: Voided Other Urinary Elimination, : pt states no urge to void at the moment - Exam General: Alert, Oriented, Cooperative GI/Abdominal Exam: Soft, Non-Tender Extremities: Normal Inspection Skin: Warm, Dry, Intact - Problem List & Annotations (1) 40 weeks gestation of SNOMED Code(s): 40891681 Code(s): Z3A.40 - 40 WEEKS GESTATION OF Status: Acute (2) Premature rupture of membranes SNOMED Code(s): 04792440 Code(s): O42.90 - BOYD ROM, 7TH0 BETW RUPT & ONST LABR, UNSP WEEKS OF GEST Status: Acute Qualifiers: PROM onset of labor timing: unspecified duration between rupture of membranes and onset of labor PROM gestational age: full term Qualified Code( s): O42.92 - Full-term premature rupture of membranes, unspecified as to length of time between rupture and onset of labor (3) Chorioamnionitis SNOMED Code(s): 57927202 Code(s): O41.1290 - CHORIOAMNIONITIS, UNSP TRIMESTER, NOT APPLICABLE OR UNSP Status: Acute Qualifiers: Trimester: third trimester (4) Vaginal delivery SNOMED Code(s): 764791957 Code(s): O80 - ENCOUNTER FOR FULL-TERM UNCOMPLICATED DELIVERY Status: Acute - Problem List Review Problem List Initiated/Reviewed/Updated: Yes - My Orders Last 24 Hours: My Active Orders 02/22/17 16:48 Hydrocortisone [Hydrocortisone 1% Crm] 0 gm TOP ASDIRECTED PRN - Assessment Assessment:: 26 y/o G1 now P1001 PPD#2 from at 40 1/7 wks - Plan Plan:: * Routine cares * Encourage breast feeding * Discharge home today Libia Mcnamara MD
--- NOTE | 2017-02-23 07:33 | PCM.DCSUM1 ---
Discharge Summary - Discharge Data Discharge Date: 02/23/17 Discharge Disposition: Home, Self-Care 01 Condition: Good - Discharge Diagnosis/Problem(s) (1) 40 weeks gestation of SNOMED Code(s): 97054916 ICD Code: Z3A.40 - 40 WEEKS GESTATION OF Status: Acute (2) Premature rupture of membranes SNOMED Code(s): 40060919 ICD Code: O42.90 - BOYD ROM, 7TH0 BETW RUPT & ONST LABR, UNSP WEEKS OF GEST Status: Acute Qualifiers: PROM onset of labor timing: unspecified duration between rupture of membranes and onset of labor PROM gestational age: full term Qualified Code( s): O42.92 - Full-term premature rupture of membranes, unspecified as to length of time between rupture and onset of labor (3) Chorioamnionitis SNOMED Code(s): 29005766 ICD Code: O41.1290 - CHORIOAMNIONITIS, UNSP TRIMESTER, NOT APPLICABLE OR UNSP Status: Acute Qualifiers: Trimester: third trimester (4) Vaginal delivery SNOMED Code(s): 945941261 ICD Code: O80 - ENCOUNTER FOR FULL-TERM UNCOMPLICATED DELIVERY Status: Acute - Patient Summary/Data Complications: None Consults: None Recommended Follow-up Testing/Procedures: Follow up in 5-6 weeks for check Hospital Course: 26 y/o at 40 0/7 wks who presented with SROM. She required pitocin for augmentation, but did acheive complete dilation. During the course of pushing she developed chorioamnionitis, but was treated wtih IV antibiotics. She did eventually acheive a vaginal delivery. See delivery note for full deatils. she did well and was discharged to home on PPD#2. - Patient Instructions Diet: Regular Diet as Tolerated Activity: As Tolerated Activity, Other: Pelvic Rest for 6 weeks Driving: May Drive Today Showering/Bathing: May Shower Showering/Bathing, Other: May Bathe Notify Provider of: Fever, Increased Pain, Swelling and Redness, Drainage, Nausea and/or Vomiting - Discharge Plan Home Medications: Home Meds Docusate Sodium [Colace] 100 mg PO BID PRN cap 02/23/17 [Rx] Ibuprofen [IJD: Ibuprofen] 600 mg PO Q6H PRN tablet 09/15/17 [Rx] Patient Handouts: Home Care Instructions for Mom Referrals: Libia Mcnamara MD [Primary Care Provider] - (5-6 weeks for check) - Discharge Summary/Plan Comment DC Time >30 min.: No - Patient Data Vitals - Most Recent: Last Vital Signs Temp 36.2 C 02/23/17 05:16 Pulse 56 L 02/23/17 05:16 Resp 16 02/23/17 05:16 BP 126/63 02/23/17 05:16 Pulse Ox 93 L 02/23/17 05:16 Weight - Most Recent: 90.265 kg I&O - Last 24 hours: Intake & Output 02/22/17 02/23/17 02/23/17 22:59 06:59 14:59 Intake Total 120 Balance 120 Med Orders - Current: Current Medications Acetaminophen (Tylenol) 650 mg PO Q4H PRN PRN Reason: mild pain or fever Last Admin: 02/21/17 19:09 Dose: 650 mg Benzocaine/Menthol (Dermoplast Pain Relief [place]) 0 gm TOP ASDIRECTED PRN PRN Reason: Perineal Comfort Measure Last Admin: 02/21/17 07:01 Dose: 1 can Docusate Sodium (Colace) 100 mg PO BID PRN PRN Reason: Constipation Last Admin: 02/22/17 15:48 Dose: 100 mg Emollient Ointment (Lansinoh Hpa) 0 gm TOP ASDIRECTED PRN PRN Reason: Sore Nipples Last Admin: 02/22/17 15:48 Dose: 1 tube Hydrocortisone (Hydrocortisone 1% Crm) 0 gm TOP ASDIRECTED PRN PRN Reason: Pain Last Admin: 02/22/17 18:17 Dose: 1 tube Ibuprofen (Motrin) 600 mg PO Q6H PRN PRN Reason: Mild pain or fever Last Admin: 02/22/17 21:24 Dose: 600 mg Witch [place] (Tucks) 1 pad TOP ASDIRECTED PRN PRN Reason: Hemorrhoid pain Last Admin: 02/21/17 07:02 Dose: 1 can Discontinued Medications Diphenhydramine HCl (Benadryl) 25 mg IVPUSH Q6H PRN PRN Reason: Pruritis Ephedrine Sulfate (Ephedrine Sulfate) 5 mg IVPUSH ASDIRECTED PRN PRN Reason: Hypotension Famotidine (Pepcid) 20 mg IVPUSH ONETIME PRN PRN Reason: stomach ache Fentanyl (Sublimaze) 100 mcg EPIDUR Q3H PRN PRN Reason: Pain Last Admin: 02/20/17 09:03 Dose: 100 mcg Fentanyl/Bupivacaine HCl (Fentanyl/Bupivacaine/Ns 2 Mcg-0.125% 100 Ml) 100 ml EPIDUR ASDIRECTED [facility] Last Admin: 02/20/17 23:14 Dose: 100 ml Lactated Ringer's (Ringers, Lactated) 1,000 mls @ 100 mls/hr IV ASDIRECTED ANTOINE Last Admin: 02/20/17 09:20 Dose: 100 mls/hr Oxytocin/Lactated Ringer's (Pitocin In Lr 10 Units/1,000 Ml) 10 unit in 1,000 mls @ 12 mls/hr IV TITRATE ANTOINE; 2 MUNITS/MIN PRN Reason: Protocol Last Admin: 02/20/17 23:36 Dose: 12 munits/min, 72 mls/hr Oxytocin/Lactated Ringer's (Pitocin In Lr 10 Units/1,000 Ml) 10 unit in 1,000 mls @ 500 mls/hr IV .CONTINUOUS ANTOINE Ampicillin Sodium 2 gm/ Sodium (Chloride) 100 mls @ 200 mls/hr IV Q6H [facility] Last Admin: 02/20/17 22:02 Dose: 200 mls/hr Gentamicin Sulfate 140 mg/ (Sodium Chloride) 103.5 mls @ 200 mls/hr IV Q8H [facility] Last Admin: 02/20/17 22:32 Dose: 200 mls/hr Misoprostol (Cytotec) Confirm Administered Dose 600 mcg .ROUTE .[email or web address]MED ONE Stop: 02/21/17 00:49 Last Admin: 02/21/17 08:44 Dose: Not Given Nalbuphine HCl (Nubain) 10 mg IVPUSH Q2H PRN PRN Reason: Pain (moderate 4-6) Ondansetron HCl (Zofran) 4 mg IVPUSH Q4H PRN PRN Reason: Nausea/Vomiting Last Admin: 02/20/17 18:52 Dose: 4 mg Ondansetron HCl (Zofran) 4 mg IVPUSH ONETIME PRN PRN Reason: Nausea/Vomiting Sodium Chloride (Saline Flush) 10 ml FLUSH ASDIRECTED PRN PRN Reason: Keep Vein Open *Q Meaningful Use (DIS) - VTE *Q VTE Criteria *Q: - Stroke *Q Stroke Criteria *Q: - AMI *Q AMI Criteria *Q:
== END 2017-02-23 11:10 | disposition home or self-care (01) | DRG 560 ==
LOC: JD.OB 01:38 → JD.OBCHECK 01:38 → JD.OB 02:00 → OBSVTOIN 02-21 00:44 → JD.OB 02-21 00:44
PROVIDERS: ADMIT Obstetrics & Gynecology; ATTEND Obstetrics & Gynecology
PROC: 00HU33Z Insertion of Infusion Device into Spinal Canal, Percutaneous Approach (ICD-10-PCS; 2017-02-20)
PROC: 3E0R3CZ (ICD-10-PCS; 2017-02-20)
PROC: 10E0XZZ Delivery of Products of Conception, External Approach (ICD-10-PCS; principal; 2017-02-21)
PROC: 0KQM0ZZ Repair Perineum Muscle, Open Approach (ICD-10-PCS; 2017-02-21)
DX: O42.02 Full-term premature rupture of membranes, onset of labor within 24 hours of rupture (principal); O77.0 Labor and delivery complicated by meconium in amniotic fluid; O70.1 Second degree perineal laceration during delivery; O41.1290 Chorioamnionitis, unspecified trimester, not applicable or unspecified; O69.81X0 Labor and delivery complicated by cord around neck, without compression, not applicable or unspecified; Z3A.40 40 weeks gestation of pregnancy; Z37.0 Single live birth
CPT/HCPCS: 01967; 36415; 51702; 51798; 59409; 85027; 86850; 86900; 86901; A9270-GY; J0290; J1580; J2405; J2590; J3010; J7030; J7120